=== PATIENT | female | born 1980 | race Caucasian/White ===

== ENCOUNTER 2016-09-06 14:04 | Outpatient (CLI) | payer SELFPAY ==
[2016-09-06] MEDS ORDERED: LACTATED RINGERS 500 ML IV ONE (14:23)
[2016-09-06 15:14] LABS: Bacteria,Urine 1+ /HPF (Negative); Bilirubin,Urine NEG (Negative); Blood,Urine NEG (Negative); Ketones,Urine NEG (Negative); Leukocyte Esterase,Urine LG (Negative); Mucus,Urine 3+ /HPF; Nitrite,Urine NEG (Negative)
[2016-09-06] MEDS ORDERED: ZOFRAN IV ONE (16:00)
[2016-09-06 16:34] LABS: Basophils % (Auto) 0.2 % (0.0-1.8); Eosinophils % (Auto) 1.4 % (0.0-4.3); Hematocrit 32.6 % (30.3-42.9); Hemoglobin 11.3 gm/dl (10.1-14.3); Mean Corpuscular HGB Conc 35 % (30-34); Mean Corpuscular Hemoglobin 30 pg (28-32); Mean Corpuscular Volume 88 fl (79-97); Platelet Count 183 K/mm3 (140-440); Red Blood Count 3.72 M/mm3 (3.65-5.03); Red Cell Distribution Width 13.8 % (13.2-15.2); White Blood Count 6.4 K/mm3 (4.5-11.0)
[2016-09-06 16:50] LABS: Alanine Aminotransferase 14 units/L (7-56); Albumin 3.1 g/dL (3.9-5); Alkaline Phosphatase 66 units/L (35-129); Anion Gap 16 mmol/L; Bilirubin,Total 0.2 mg/dL (0.1-1.2); Blood Urea Nitrogen 9 mg/dL (7-17); Calcium 7.9 mg/dL (8.4-10.2); Carbon Dioxide 21 mmol/L (22-30); Chloride 101.1 mmol/L (98-107); Glucose 87 mg/dL (65-100); Potassium 3.1 mmol/L (3.6-5.0); Sodium 135 mmol/L (137-145); Total Protein 6.1 g/dL (6.3-8.2)
[2016-09-06] MEDS ORDERED: KCL 10MEQ/100ML 100 ML IV ONE ×2 (17:53→23:00)
[2016-09-06] MEDS ORDERED: LACTATED RINGERS 1,000 ML ONE (18:45)
[2016-09-06] MEDS ORDERED: K-DUR PO ONE (19:30)
[2016-09-07] MEDS ORDERED: LACTATED RINGERS 1,000 ML ONE (00:41)
[2016-09-07] MEDS ORDERED: LACTATED RINGERS 1,000 ML IV SCH (00:45)
[2016-09-07 01:43] VITALS: BP 113/49
== END 2016-09-07 01:50 | disposition home or self-care (01) ==
LOC: TRG 14:04 → LD 17:33 → TRG 17:51 → LD 19:29 → TRG 09-07 01:50
PROVIDERS: ATTEND Specialist
DX: Z34.90 Encounter for supervision of normal pregnancy, unspecified, unspecified trimester (principal); Z3A.00 Weeks of gestation of pregnancy not specified
CPT/HCPCS: 36415; 59025; 80053; 81001; 85025; 96360; 96365; J2405; J3480; J7120

== ENCOUNTER 2016-10-13 20:01 | Outpatient (CLI) | payer OTHER ==
[2016-10-13] MEDS ORDERED: LACTATED RINGERS 500 ML IV ONE (20:15)
[2016-10-13 20:27] VITALS: BP 119/58
[2016-10-13] MEDS ORDERED: LACTATED RINGERS 0 ML ONE (20:31)
[2016-10-13] MEDS ORDERED: LACTATED RINGERS 1,000 ML ONE (20:32)
[2016-10-13 21:03] LABS: Bilirubin,Urine NEG (Negative); Blood,Urine NEG (Negative); Ketones,Urine NEG (Negative); Leukocyte Esterase,Urine MOD (Negative); Mucus,Urine FEW /HPF; Nitrite,Urine NEG (Negative); Protein,Urine <15 mg/dL mg/dL (Negative); Urobilinogen,Urine < 2.0 mg/dL (<2.0)
[2016-10-13] MEDS ORDERED: GARAMYCIN/NS 80 MG/100 ML 100 ML IV ONE ×2 (21:05→21:06)
== END 2016-10-13 22:02 | disposition home or self-care (01) ==
LOC: TRG 20:01
PROVIDERS: ATTEND Specialist
DX: O26.893 Other specified pregnancy related conditions, third trimester (principal); O09.513 Supervision of elderly primigravida, third trimester; M54.9 Dorsalgia, unspecified; R10.9 Unspecified abdominal pain; Z3A.30 30 weeks gestation of pregnancy
CPT/HCPCS: 59025; 81001; 96360; J1580; J7120